=== PATIENT | male | born 1945 | race Caucasian/White ===

== ENCOUNTER 2023-01-24 12:37 | Emergency (ER) | payer MEDICARE, OTHER ==
[2023-01-24] MEDS ORDERED: Lidocaine 1% 10 ML MDV INJECT ONE (13:57)
[2023-01-24] MEDS ORDERED: Bacitracin Oint 1 GM U/D Packet TOP ONE (14:46)
== END 2023-01-24 15:05 | disposition home or self-care (01) ==
LOC: JP.ED 12:37
DX: S60.351A Superficial foreign body of right thumb, initial encounter (principal); S69.91XA Unspecified injury of right wrist, hand and finger(s), initial encounter; F17.210 Nicotine dependence, cigarettes, uncomplicated; Z88.0 Allergy status to penicillin; W45.8XXA Other foreign body or object entering through skin, initial encounter
CPT/HCPCS: 64450; 73120-26-RT; 73120-RT; 99283

== ENCOUNTER 2023-01-25 06:12 | Day surgery (SDC) | payer MEDICARE, OTHER ==
[2023-01-25] MEDS ORDERED: Dextrose 5%-Lactated Ringers 1,000 ML IV SCH (06:30)
[2023-01-25] MEDS ORDERED: Lidocaine 1% with EPINEPHrine 1:100,000 50 ML MDV ONE ×2 (06:48→07:03)
[2023-01-25] MEDS ORDERED: Bupivacaine 0.5% 50 ML MDV ONE ×2 (06:48→07:03)
[2023-01-25] MEDS ORDERED: Bupivacaine 0.5%/EPINEPHrine 1:200,000 50 ML MDV ONE (06:50)
[2023-01-25] MEDS ORDERED: Propofol 200 MG/20 ML SDV ONE (07:05)
[2023-01-25] MEDS ORDERED: fentaNYL 100 MCG/2 ML SDV ONE (07:05)
[2023-01-25] MEDS ORDERED: Midazolam 1 MG/ML 2 ML SDV ONE (07:05)
[2023-01-25] MEDS ORDERED: Bupivacaine 0.5% 30 ML SDV ONE (07:06)
[2023-01-25] MEDS ORDERED: ceFAZolin 2 GM in Premix Bag 1 BAG IV ONE (07:08)
[2023-01-25] MEDS ORDERED: ceFAZolin 1 GM Vial ONE (07:09)
[2023-01-25] MEDS ORDERED: Diphtheria,Pertussis(Acell),Tetanus Vaccine 0.5 ML Syringe IM ONE (08:30)
== END 2023-01-25 08:55 | disposition home or self-care (01) ==
LOC: JP.SDS 06:12
PROVIDERS: ATTEND Surgery
DX: S60.351A Superficial foreign body of right thumb, initial encounter (principal); I10 Essential (primary) hypertension; E78.5 Hyperlipidemia, unspecified; F17.200 Nicotine dependence, unspecified, uncomplicated; Z88.0 Allergy status to penicillin; Z79.899 Other long term (current) drug therapy
CPT/HCPCS: 20520; 76000; 90471; 90715; J0690; J2250; J2704; J3010; J3490; J7121